=== PATIENT | female | born 1970 | race Caucasian/White ===

== ENCOUNTER → 2020-04-01 10:41 | Outpatient (BNVA) | payer MEDICAID, SELFPAY | PROVIDERS: Family Provider Family Medicine; Visit Provider Family Medicine | DX: Z13.6 Encounter for screening for cardiovascular disorders (principal) | CPT/HCPCS: 80053; 80061; 85025 ==

== ENCOUNTER 2023-08-16 21:16 | Inpatient (IN) | payer MEDICAID, SELFPAY ==
[2023-08-16 21:18] VITALS: BP 170/94; PULSE 72; RESP 18; TEMP 36.9; O2SAT 97
--- NOTE | 2023-08-16 21:39 | PC.NURSE ---
Patient has been dressed out of regular clothes and placed in paper scrubs. All belongings removed, patient placed in cleared room. PSA present with patient at this time.
--- NOTE | 2023-08-16 21:40 | PC.NURSE ---
Notes that were handwritten by the patient placed on her chart
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
--- NOTE | 2023-08-16 21:45 | PC.NURSE ---
Addendum entered by Lou Andrea RN 08/16/23 22:40: this nurse spoke with Nghia about [facility] for medications. since there was no clear cute time that medications were taken, it would be out clinical judgment on when to dc her to the unit. possibly repeat ekg in 4 hours if we noticed changes in her vitals. Original Note: Contacted [place] [facility] at this time and spoke with ROB Agrawal. Regarding the 300mg Gabapentin (approximately 40 pills ingested), monitor for the following symptoms: -drowsiness -slurred words -ataxia -confusion ROB Agrawal instructed nurse to monitor symptoms and provide symptomatic supportive care as needed. Regarding the 50mg Zoloft (approximately 6 pills ingested), monitor for the following symptoms: -toxic dose is anything over 500mg -prolong QT -tachycardia -serotonin toxicity ROB Agrawal stated that she would fax more information over to [facility].
[2023-08-16 21:58] LABS: Cocaine Screen Urine Negative (Negative); Opiate Screen Urine Negative (Negative); PCP Screen Urine Negative (Negative); THC Screen Urine Positive (Negative)
--- NOTE | 2023-08-16 21:59 | ECG_ITS ---
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 Measurements Intervals [place] Rate: 63 P: -3 NJ: 142 QRS: 76 QRSD: 84 T: -1 QT: 439 QTc: 452 Interpretive Statements SINUS RHYTHM POSSIBLE LEFT ATRIAL ENLARGEMENT [-0.1mV P-WAVE IN V1/V2] ABNORMAL QRS-T ANGLE [QRS-T AXIS DIFFERENCE > 60] No previous ECG available for comparison Electronically Signed On 08-17-2023 8:14:29 TOOL ROOM ATTENDANT by Joaquín Ventura M.D. [email or web address]
[2023-08-16 22:00] LABS: Basophils # 0.1 10^3/uL (0.0-0.1); Basophils % 0.5 %; Eosinophils # 0.1 10^3/uL (0.0-0.8); Eosinophils % 0.8 %; Hematocrit 39.3 % (36-47); Lymphocytes # 3.1 10^3/uL (0.8-4.8); Lymphocytes % 34.3 %; Mean Corpuscular HGB Conc 33.1 g/dL (30-55); Mean Corpuscular Hemoglobin 29.7 pg (27-33); Mean Corpuscular Volume 89.7 fl (85-98); Mean Platelet Volume 8.9 fL (7.4-10.4); Monocytes # 0.6 10^3/uL (0.2-0.9); Monocytes % 6.9 %; Neutrophils % 57.1 %; Nucleated Red Blood Cells % 0 %; Platelet Count 350 10^3/cmm (157-399); Red Blood Count 4.38 10^6/uL (3.85-5.65); Red Cell Distribution Width 12.9 % (12.1-15.1); White Blood Count 9.12 10^3/uL (3.29-11.43)
[2023-08-16 22:11] VITALS: BP 158/85; PULSE 81; O2SAT 98
[2023-08-16 22:11] LABS: Amphetamines Screen Urine Negative (Negative); Barbiturates Screen Urine Negative (Negative); Benzodiazepines Screen Urine Negative (Negative)
--- NOTE | 2023-08-16 22:15 | PC.NURSE ---
96 [facility] Pt served with copy of 96 HH by this RN and security. Pt is remorseful and stating that they didn't mean what they wrote. Pt requesting medication for anxiety.
[2023-08-16 22:17] LABS: Alanine Aminotransferase 10 U/L (0-33); Albumin Level 4.2 g/dL (3.5-5.2); Alkaline Phosphatase 132 U/L (35-105); Anion Gap 13.5 (5-19); Aspartate Amino Transferase 14 U/L (0-32); Blood Urea Nitrogen 10 mg/dL (6-20); Calcium 9.1 mg/dL (8.5-10.5); Carbon Dioxide 30 mmol/L (22-29); Chloride 100 mmol/L (98-107); Globulin 3.4 g/dL (1.3-4.6); Glomerular Filtration Rate 104.6 mL/min (90-130); Glucose 118 mg/dL (65-115); Osmolality Calculated 290 mOsm/kg (285-295); Potassium 3.5 mmol/L (3.5-5.1); Salicylate 0.8 mg/dL (3-10); Sodium 140 mmol/L (136-145); Total Bilirubin 0.6 mg/dL (0.15-1.2); Total Protein 7.6 g/dL (6.6-8.7)
[2023-08-16 22:19] LABS: Acetaminophen < 5.0 ug/mL (10-30)
--- NOTE | 2023-08-16 22:24 | PC.NURSE ---
pt statement pt states at this time she is ready to go to the unit so she can start her time. states she is not a threat to herself. states 'if i were a threat to myself I would burn myself'
[2023-08-16] MEDS: LORazepam 2 mg/mL INJ 10 mL MDV 1 MG IM (22:28)
[2023-08-16 22:42] LABS: Alcohol Level < 10 mg/dL (0-10)
[2023-08-16 22:57] VITALS: BP 185/72; PULSE 65; RESP 20; TEMP 36.4; O2SAT 99
[2023-08-17 06:00] VITALS: BP 128/70; PULSE 82; RESP 18; TEMP 36.7; O2SAT 93
[2023-08-17] MEDS: nicotine 21 mg Patch 1 PATCH TRANSDERMA (08:57)
[2023-08-17] MEDS: flu vacc pf 2023-24 (6 mos+) 60 MCG IM (09:09)
[2023-08-17] MEDS: pneumococcal (23 valent) SDV 0.5 mL IM (09:16)
[2023-08-17 14:00] VITALS: BP 129/69; PULSE 70; RESP 16; TEMP 36.8; O2SAT 96
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
[2023-08-17 21:02] VITALS: BP 146/69; PULSE 75; RESP 17; TEMP 36.9; O2SAT 98
[2023-08-18 06:00] VITALS: BP 154/75; PULSE 79; RESP 15; TEMP 36.9; O2SAT 96
[2023-08-18] MEDS: nicotine 21 mg Patch 1 PATCH TRANSDERMA (08:37)
[2023-08-18] MEDS: duloxetine 30 mg Capsule PO (08:42)
[2023-08-18 13:50] VITALS: BP 125/81; PULSE 64; RESP 16; TEMP 36.9; O2SAT 98
--- NOTE | 2023-08-18 16:17 | P.NPUPN_ITS ---
Subjective NPU 2 Subjective: Patient presented today reporting that she is doing okay. She reports that she has had Cymbalta previously in her life and that she feels like it is doing fine. She denied any side effects. She reports that she is likely going to stay in this area when she leaves as her children and grandchildren are around. We discussed the 96-hour hold and how the process works and that we had no current plan to keep her beyond the 96 hours or ask for an extension. She reports feeling better overall. Mental Status Exam 2 MSE Comments: This is an overweight white female in hospital scrubs with limited grooming but adequate eye contact. Appeared absent dentition with some atrophy from the time frame of missing teeth. No abnormal movements except for mild psychomotor retardation. Cooperative with exam in mild distress. Speech is normal rate and volume. Her mood was described as a little better. Her affect was subdued and mood congruent. She denied suicidal or homicidal ideation. There were no delusions reported or noted, she denied any auditory or visual hallucinations. Attention and concentration appeared intact and memory appeared reliable but none were formally tested. She is alert and oriented x 3. Insight and judgment appear limited but improving and her impulse control appeared limited. Vitals/I&O/Wt Last Vital Signs Temp 98.4 F 08/18/23 13:50 Pulse 64 08/18/23 13:50 Resp 16 08/18/23 13:50 BP 125/81 08/18/23 13:50 Pulse Ox 98 08/18/23 13:50 O2 Del Method Room Air 08/18/23 13:50 Weight last 48 hrs Weight 70.307 kg Data NPU 08/16/23 21:54 08/16/23 21:54 A&P Assessment and plan (1) Schizoaffective disorder, depressive type: (2) Suicidal ideation: (3) PTSD (post-traumatic stress disorder): Plan 53-year-old white female history of schizoaffective disorder predominantly depressed type admitted with depression and suicidal ideation after an overdose. Patient would likely benefit from continued inpatient hospital stay with the restarting of medication and psychotherapy. 1. ?Encourage individual, group and milieu therapy. 2. Recommend sober living treatment at the highest level of care to which the patient is willing to commit. 3. Continue q-15 minute checks for safety 4. Continue cymbalta 30mg in am to target depression. 5. Will attempt to gather collateral information. Involuntary Hold Information 2 96 Hour Hold: 96 Hour Involuntary Admission: Yes 96 Hour Hold Ending Date: 08/22/23 96 Hour Hold Ending Time: 21:16 Attestations NPU 2 Medical Necessity Statement*: Inpatient hospitalization is medically necessary and deemed to be the clinically appropriate intervention at this time.? Medications will be initiated and adjusted as clinically indicated.? The patient?s likely length of stay is 3-5 days.? Coding Level of Care Code Acute Code for [facility] Fwd Diagnoses Schizoaffective disorder, depressive type F25.1 Suicidal ideation R45.851 PTSD (post-traumatic stress disorder) F43.10
[2023-08-18] MEDS: acetaminophen 325 mg Tablet 650 MG PO (18:03)
[2023-08-18 21:06] VITALS: BP 125/79; PULSE 74; RESP 16; TEMP 36.8; O2SAT 97
[2023-08-19] MEDS: nicotine 4 mg lozenge MUCOUS MEM (00:49)
[2023-08-19 06:00] VITALS: BP 146/84; PULSE 74; RESP 16; TEMP 36.8; O2SAT 96
[2023-08-19] MEDS: duloxetine 30 mg Capsule PO (08:16)
[2023-08-19] MEDS: nicotine 21 mg Patch 1 PATCH TRANSDERMA (08:16)
[2023-08-19] MEDS: acetaminophen 325 mg Tablet 650 MG PO ×2 (11:17→18:02)
[2023-08-19] MEDS: ibuprofen 600 mg Tablet PO (13:16)
[2023-08-19 14:00] VITALS: BP 148/86; PULSE 68; RESP 14; TEMP 36.6; O2SAT 99
--- NOTE | 2023-08-19 15:55 | W.PM.NPUPNS ---
Subjective NPU Subjective: Patient presented today reporting that she is really starting to feel better. She tried to downplay her overdose and we talked about having to be honest about what had happened. She identified that she understood the concerns and reported that that would not happen again. We discussed her reports of when someone might be able to come pick her up. We discussed the fact that with her current trajectory discharge by Tuesday will be appropriate and we talked about the possibility of discharge this weekend. She denied any side effects to the medication. Mental Status Exam MSE Comments: This is an overweight white female in hospital scrubs with limited grooming but adequate eye contact. Appeared absent dentition with some atrophy from the time frame of missing teeth. No abnormal movements except for mild psychomotor retardation. Cooperative with exam in mild distress. Speech is normal rate and volume. Her mood was described as a little better. Her affect was congruent. She denied suicidal or homicidal ideation. There were no delusions reported or noted, she denied any auditory or visual hallucinations. Attention and concentration appeared intact and memory appeared reliable but none were formally tested. She is alert and oriented x 3. Insight and judgment appear limited but improving and her impulse control appeared limited. Vitals/I&O/Wt Last Vital Signs Temp 98.2 F 08/19/23 06:00 Pulse 74 08/19/23 06:00 Resp 16 08/19/23 06:00 BP 146/84 08/19/23 06:00 Pulse Ox 96 08/19/23 06:00 O2 Del Method Room Air 08/19/23 06:00 Data NPU 08/16/23 21:54 08/16/23 21:54 A&P Assessment and plan (1) Schizoaffective disorder, depressive type: (2) Suicidal ideation: (3) PTSD (post-traumatic stress disorder): Plan 53-year-old white female history of schizoaffective disorder predominantly depressed type admitted with depression and suicidal ideation after an overdose. Patient would likely benefit from continued inpatient hospital stay with the restarting of medication and psychotherapy. 1. ?Encourage individual, group and milieu therapy. 2. Recommend sober living treatment at the highest level of care to which the patient is willing to commit. 3. Continue q-15 minute checks for safety 4. Continue cymbalta 30mg in am to target depression. 5. Will attempt to gather collateral information. Involuntary Hold Information 96 Hour Hold: 96 Hour Involuntary Admission: Yes 96 Hour Hold Ending Date: 08/22/23 96 Hour Hold Ending Time: 21:16 Attestations NPU Medical Necessity Statement*: Inpatient hospitalization is medically necessary and deemed to be the clinically appropriate intervention at this time.? Medications will be initiated and adjusted as clinically indicated.? The patient?s likely length of stay is 1-3 days.? Coding Level of Care Code Acute Code for [facility] Fwd Diagnoses Schizoaffective disorder, depressive type F25.1 Suicidal ideation R45.851 PTSD (post-traumatic stress disorder) F43.10
[2023-08-19] MEDS: nicotine 2 mg Gum BUCCAL (18:03)
[2023-08-19] MEDS: simethicone 80 mg Chew PO (18:53)
[2023-08-19 20:47] VITALS: BP 150/76; PULSE 77; RESP 17; TEMP 36.9; O2SAT 98
[2023-08-20 06:00] VITALS: BP 142/89; PULSE 78; RESP 16; TEMP 36.7; O2SAT 98
[2023-08-20] MEDS: nicotine 21 mg Patch 1 PATCH TRANSDERMA (06:40)
[2023-08-20] MEDS: duloxetine 30 mg Capsule PO (08:05)
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
[2023-08-20 10:13] VITALS: BP 142/89; PULSE 78; RESP 16; TEMP 36.7; O2SAT 98
[2023-08-20] MEDS: hyDROXYzine 25 mg Capsule 50 MG PO (10:52)
== END 2023-08-20 11:06 | disposition home or self-care (01) | DRG 885 ==
LOC: ER 21:56 → NP 22:33
PROVIDERS: Emergency Medicine; Admitting Provider Psychiatry & Neurology Psychiatry; Emergency Provider Nurse Practitioner; Visit Provider Psychiatry & Neurology Psychiatry
DX: F25.1 Schizoaffective disorder, depressive type (principal); R45.851 Suicidal ideations; K86.1 Other chronic pancreatitis; F43.10 Post-traumatic stress disorder, unspecified; Z56.0 Unemployment, unspecified; K21.9 Gastro-esophageal reflux disease without esophagitis; F17.210 Nicotine dependence, cigarettes, uncomplicated; G47.00 Insomnia, unspecified; G89.29 Other chronic pain; M54.50 Low back pain, unspecified; J45.909 Unspecified asthma, uncomplicated; G25.81 Restless legs syndrome; R42 Dizziness and giddiness; F41.9 Anxiety disorder, unspecified; F32.A Depression, unspecified; K59.09 Other constipation; T43.222A Poisoning by selective serotonin reuptake inhibitors, intentional self-harm, initial encounter; Y92.89 Other specified places as the place of occurrence of the external cause
CPT/HCPCS: 36415; 80053; 80306; 80307; 85025; 90471; 90686; 90732; 93005; 96372; 97165; 99285; J2060

== ENCOUNTER 2023-11-15 14:52 | Emergency (ER) | payer MEDICAID, SELFPAY ==
[2023-11-15 14:53] VITALS: BP 106/77; PULSE 92; RESP 18; TEMP 36.5; O2SAT 98
[2023-11-15 15:39] VITALS: BP 79/56; PULSE 92; RESP 19; O2SAT 96
--- NOTE | 2023-11-15 15:47 | PC.NURSE ---
PT BP 81/56. PT REPORTS THAT HER BP RUNS LOW BUT NEVER THAT LOW. PT DENIES LIGHTHEADED OR DIZZY. PT STATES SHE TOOK IBU PRIOR TO COMING INTO ER. PA NOTIFIED AND AWARE.
[2023-11-15 16:08] VITALS: BP 101/66; O2SAT 97
--- NOTE | 2023-11-15 16:15 | CTR_ITS ---
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 Mid line TECHNIQUE: Imaging protocol: Computed tomography of the lumbar spine without contrast. Radiation optimization: All CT scans at this facility use at least one of these dose optimization techniques: automated exposure control; mA and/or kV adjustment per patient size (includes targeted exams where dose is matched to clinical indication); or iterative reconstruction. COMPARISON: No relevant prior studies available. RADIATION DOSE METRICS: Total DLP (mGy-cm): 606 FINDINGS: Bones/joints: The bony structures demonstrate diffuse osteopenia. No fracture or subluxation noted. Mild multilevel vertebral body spurring noted. A moderate disc bulge is noted at the L5-S1 level. Soft tissues: Unremarkable. CT/CT lumbar spine wo con* [id number] IMPRESSION: 1. No acute findings. 2. Osteoporosis 3. Disc bulge at L5-S1
--- NOTE | 2023-11-15 16:15 | W.ED.BACK ---
HPI - Back Pain/Injury General: Chief Complaint: Back Pain/Injury Stated Complaint: heard something pop in back Time Seen by Provider: 11/15/23 15:35 Source: patient Mode of arrival: ambulatory Limitations: no limitations History of Present Illness: Patient presents emergency department today for evaluation treatment of midline low back pain. Patient reports that this morning around 8:00 she bent over to try and lift up a bag of soil and felt a pop in her low back. She has had pain in that area since. She denies any radiation of her pain. She states it feels like an intense tingling. She has had urinary voids throughout the day without difficulty and is ambulatory and david bearing, but with pain. No saddle parenthesia. She has only taken ibuprofen earlier today for her pain. Review of Systems General: Reports: 10 or more systems reviewed and unremarkable except in HPI and below PFSH ED PFSH: Medical History Psychiatric care Chronic pancreatitis Chronic constipation GERD (gastroesophageal reflux disease) Ulcer Vertigo RLS (restless legs syndrome) Asthma Allergic rhinitis Chronic low back pain Insomnia Surgical History H/O: hysterectomy History of cholecystectomy History of appendectomy Family History Mother Hypothyroidism Other Hypertension Social History Smoking and tobacco/nicotine status: current every day tobacco/nicotine user cigarettes Packs smoked per day: 1 Alcohol intake: former Former alcohol use details: NOT HEAVY Substance/Drug Use: current Substance/Drug use frequency: daily Caregiver/support person: No Lives independently: Yes service: No Current occupational status: unemployed Current occupational exposures/hazards: No Female Reproductive History: Spontaneous abortions: No Physical Exam Const: COMMON NORMALS: patient oriented x3 and alert HENMT: COMMON NORMALS: normocephalic, atraumatic and hearing grossly normal bilaterally HEAD & SCALP: normocephalic and atraumatic Eye: COMMON NORMALS: Equal, round and reactive pupils present, EOMs intact bilaterally and conjunctivae normal CONJUNCTIVA: Yes conjunctivae normal PUPIL: Yes Equal, round and reactive pupils present Neck/C-Spine: COMMON NORMALS: full ROM and no JVD Lymph: LYMPHATIC: no lymphadenopathy noted Resp: COMMON NORMALS: normal respiratory effort, No retractions and No use of accessory muscles Cardio: COMMON NORMALS: no JVD and regular rate RATE: regular rate Back/Pelvis: OTHER: Patient indicates pain to the lumbar region. Tender to midline palpation with minimal tenderness to the surrounding musculature. Mostly L3 to the sacrum. Extremity: COMMON NORMALS: normal to inspection and full ROM Neuro: COMMON NORMALS: patient oriented x3 SENSORIUM/ORIENTATION: Yes alert Psych: COMMON NORMALS: mental status grossly normal, Normal thought process present, cooperative and normal affect THOUGHT PROCESS: Normal thought process present Skin: COMMON NORMALS: no rashes or lesions noted and turgor normal GENERAL SKIN EXAM: no rashes or lesions noted and turgor normal Course Vital Signs: Vital signs: Vital Signs Temperature 97.7 F 11/15/23 14:53 Pulse Rate 92 11/15/23 15:39 Respiratory Rate 19 H 11/15/23 15:39 Blood Pressure 101/66 11/15/23 16:08 Pulse Oximetry 97 11/15/23 16:08 Oxygen Delivery Me thod Room Air 11/15/23 16:08 MDM - Back Pain/Injury Medical Decision Making Patient presents with acute midline lumbar pain without signs of cauda equina. Her pressures were soft on arrival so fluids given and non narcotic pain meds given. Will monitor BP. Given the midline tenderness but no neuro deficit, will get a CT vs consideration for MRI. Waiting for treatment administration and imaging. Transfer of care to [facility] at 1700 All radiology interpretation(s) finalized by discharge Discharge Plan Discharge Condition: Stable Prescriptions: No Action triamcinolone acetonide 0.1 % cream 1 applic topical BID Qty: 80 1RF hydroxyzine HCl 25 mg tablet 25 mg PO BID PRN (Reason: itching, allergies) Qty: 60 2RF Myrbetriq 25 mg tablet extended release 24 hr 25 mg PO DAILY Qty: 30 5RF dicyclomine 10 mg capsule 10 mg PO BID Qty: 60 2RF albuterol sulfate 90 mcg/actuation HFA aerosol inhaler 2 inh inhalation QID PRN (Reason: shortness of breath or wheezing) Qty: 8.5 5RF pregabalin 50 mg capsule 50 mg PO BID Qty: 60 5RF Linzess 72 mcg capsule 72 mcg PO DAILY Qty: 30 5RF clonazepam 0.5 mg tablet 0.5 mg PO DAILY Qty: 30 5RF duloxetine 30 mg capsule,delayed release(DR/EC) 30 mg PO DAILY 30 Days Qty: 30 5RF acyclovir 400 mg tablet 400 mg PO TID Qty: 30 5RF Rx Instructions: Take one tab four times a day at outbreak and continue for 5 days, then stop. mupirocin 2 % ointment 1 applic topical BID 7 Days Qty: 22 0RF oxybutynin chloride 5 mg tablet 5 mg PO BID 30 Days Qty: 60 2RF Referrals: Nikhil Talbot, [Primary Care Provider] - Sign Out Sign Out Data: Patient Sign Out occurred on 11/15/23 at 17:31. Patient's care was discussed, and care was transferred from MICAH Singh to MICAH Horn. Coding Level of Care Code ED Security Checker for Yasmin Desai
[2023-11-15] MEDS: sodium chloride 0.9% 1,000 ML 999 ML IV (16:23)
[2023-11-15] MEDS: ketorolac 30 mg/mL INJ IVP (16:25)
[2023-11-15] MEDS: dexamethasone 10 mg/mL INJ IM (16:27)
--- NOTE | 2023-11-15 17:42 | W.ED.BACK ---
HPI - Back Pain/Injury General: Chief Complaint: Back Pain/Injury Stated Complaint: heard something pop in back Time Seen by Provider: 11/15/23 15:35 Source: patient Limitations: no limitations PFSH ED PFSH: Medical History Psychiatric care Chronic pancreatitis Chronic constipation GERD (gastroesophageal reflux disease) Ulcer Vertigo RLS (restless legs syndrome) Asthma Allergic rhinitis Chronic low back pain Insomnia Surgical History H/O: hysterectomy History of cholecystectomy History of appendectomy Family History Mother Hypothyroidism Other Hypertension Social History Smoking and tobacco/nicotine status: current every day tobacco/nicotine user cigarettes Packs smoked per day: 1 Alcohol intake: former Former alcohol use details: NOT HEAVY Substance/Drug Use: current Substance/Drug use frequency: daily Caregiver/support person: No Lives independently: Yes service: No Current occupational status: unemployed Current occupational exposures/hazards: No Female Reproductive History: Spontaneous abortions: No Course Vital Signs: Vital signs: Vital Signs Temperature 97.7 F 11/15/23 14:53 Pulse Rate 92 11/15/23 15:39 Respiratory Rate 19 H 11/15/23 15:39 Blood Pressure 101/66 11/15/23 16:08 Pulse Oximetry 97 11/15/23 16:08 Oxygen Delivery Wy thod Room Air 11/15/23 16:08 MDM - Back Pain/Injury Medical Decision Making Care of patient transferred to [place] by MICAH Doherty. Patient had low back injury today when bending over and lifting, felt a pop. No prior surgeries. Lumbar spine CT did not demonstrate any acute findings, patient likely dealing with a low back strain. She does note some improvement after receiving IM Toradol and Decadron, and will send home with medications to treat. Informed her to follow-up with primary care later this week for reevaluation, specifically if she is continuing to have pain she will need to get in with Ortho and get an MRI. Patient understands and reasons to return are thoroughly discussed. Labs Radiology Impressions Lumbar Spine CT 11/15/23 16:15 IMPRESSION: 1. No acute findings. 2. Osteoporosis 3. Disc bulge at L5-S1 All radiology interpretation(s) finalized by discharge Discharge Plan Discharge Patient Disposition: Home Clinical Impression: Strain of lumbar region Qualifiers: Encounter type: initial encounter Qualified Code(s): S39.012A - Strain of muscle, fascia and tendon of lower back, initial encounter Condition: Stable Prescriptions: New cyclobenzaprine 10 mg tablet 10 mg PO TID Qty: 15 0RF prednisone 20 mg tablet 60 mg PO ONCE 5 Days Qty: 15 0RF ketorolac 10 mg tablet 10 mg PO Q8H PRN (Reason: pain) Qty: 15 0RF No Action triamcinolone acetonide 0.1 % cream 1 applic topical BID Qty: 80 1RF hydroxyzine HCl 25 mg tablet 25 mg PO BID PRN (Reason: itching, allergies) Qty: 60 2RF Myrbetriq 25 mg tablet extended release 24 hr 25 mg PO DAILY Qty: 30 5RF dicyclomine 10 mg capsule 10 mg PO BID Qty: 60 2RF albuterol sulfate 90 mcg/actuation HFA aerosol inhaler 2 inh inhalation QID PRN (Reason: shortness of breath or wheezing) Qty: 8.5 5RF pregabalin 50 mg capsule 50 mg PO BID Qty: 60 5RF Linzess 72 mcg capsule 72 mcg PO DAILY Qty: 30 5RF clonazepam 0.5 mg tablet 0.5 mg PO DAILY Qty: 30 5RF duloxetine 30 mg capsule,delayed release(DR/EC) 30 mg PO DAILY 30 Days Qty: 30 5RF acyclovir 400 mg tablet 400 mg PO TID Qty: 30 5RF Rx Instructions: Take one tab four times a day at outbreak and continue for 5 days, then stop. mupirocin 2 % ointment 1 applic topical BID 7 Days Qty: 22 0RF oxybutynin chloride 5 mg tablet 5 mg PO BID 30 Days Qty: 60 2RF Discharge Orders: Discharge ED (Routine); Ordered 11/15/23 Ordered By: Boyd Bernstein Referrals: Nikhil Talbot DO [Primary Care Provider] - Discharge Diet: Usual diet Discharge Activity: Increase activity as tolerated Patient Instructions: Low Back Strain (ED), Core Strengthening Exercises (ED), Pain Management Activity Restrictions/Additional Instructions: Take medications as prescribed. Gentle range of motion exercises as tolerated. Follow-up with primary care later this week for reevaluation as discussed. Return with any new or concerning symptoms you may have. Ice/heat for added relief. Sign Out Sign Out Data: Patient Sign Out occurred on 11/15/23 at 17:31. Patient's care was discussed, and care was transferred from MICAH Singh to MICAH Horn. Coding Level of Care Code ED [employer] for Yasmin Desai
== END 2023-11-15 17:51 | disposition home or self-care (01) ==
PROVIDERS: Emergency Provider Physician Assistant; PCP Family Medicine
DX: M54.50 Low back pain, unspecified (principal); F17.210 Nicotine dependence, cigarettes, uncomplicated
CPT/HCPCS: 72131; 96361; 96374; 99285; J1100; J1885; J7030

== ENCOUNTER 2024-03-13 12:04 | Emergency (ER) | payer MEDICAID, SELFPAY ==
[2024-03-13 12:10] VITALS: BP 162/102; PULSE 111; RESP 18; TEMP 36.9; O2SAT 99; BMI 27.4
--- NOTE | 2024-03-13 12:19 | W.ED.ABDPA2 ---
HPI - Abdominal Pain General: Chief Complaint: Abdominal Pain Stated Complaint: abd pain Time Seen by Provider: 03/13/24 12:08 Source: patient Mode of arrival: ambulatory Limitations: no limitations History of Present Illness: Patient is a 53-year-old female presents to ED today with a complaint of severe upper abdominal pain that started just a few hours ago. She states she has a history of pancreatitis and states her pain today feels similar to previous episodes. She states she does not drink alcohol. States she has been told pancreatitis is idiopathic. She is having nausea but has not had any episodes of emesis. No changes to her bowel movements. No fevers. No chest pain, shortness of breath, difficulty breathing. MD elicited complaint: abdominal pain Pertinent past history: other (pancreatitis ) Onset (ago): hour(s) Pain Consistency: constant Location: Epigastric Severity: severe Quality: sharp Radiation: none Migration to: no migration Exacerbating factors: nothing Relieving factors: nothing Associated Symptoms: Reports nausea; Denies change in bowel habits, chills, diarrhea, dysuria, fever(s) and vomiting Related Data Home Medications Medication Instructions Recorded Confirmed No Known Home Medications 03/13/24 03/13/24 Allergies Allergy/AdvReac Type Severity Reaction Status Date / Time bupropion [From Wellbutrin] Allergy ADR-Cramping Verified 11/15/23 14:59 of the Muscles buspirone [From BuSpar] Allergy ADR-Agitate Verified 11/15/23 14:59 d Review of Systems Const: Denies: fever(s), chills, body aches, fatigue or malaise Card: Denies: chest pain Resp: Denies: dyspnea GI: Reports: abdominal pain and nausea; Denies: vomiting, diarrhea or change in bowel habits : Denies: flank pain, difficulty voiding, dysuria, urinary frequency, urinary urgency or urinary hesitancy Musc: Denies: neck pain, back pain, extremity pain, extremity swelling, joint pain or joint swelling Skin/Breast: Denies: rash Neuro: Denies: headache(s), numbness in extremities, weakness in extremities, sensory changes or dizziness [facility] ED PFSH: Medical History Psychiatric care Chronic pancreatitis Chronic constipation GERD (gastroesophageal reflux disease) Ulcer Vertigo RLS (restless legs syndrome) Asthma Allergic rhinitis Chronic low back pain Insomnia Surgical History H/O: hysterectomy History of cholecystectomy History of appendectomy Family History Mother Hypothyroidism Other Hypertension Social History Smoking and tobacco/nicotine status: current every day tobacco/nicotine user cigarettes Packs smoked per day: 1 Alcohol intake: former Former alcohol use details: NOT HEAVY Substance/Drug Use: current Substance/Drug use frequency: daily Caregiver/support person: No Lives independently: Yes service: No Current occupational status: unemployed Current occupational exposures/hazards: No Female Reproductive History: Spontaneous abortions: No Physical Exam Const: COMMON NORMALS: average body habitus, patient oriented x3, no limitations, alert and well nourished GENERAL APPEARANCE: cooperative, in distress (appears uncomfortable secondary to pain) and appears older than stated age ORIENTATION/CONSCIOUSNESS: Yes awake, Yes oriented to person, Yes oriented to place and Yes oriented to time Eye: COMMON NORMALS: no scleral icterus Resp: COMMON NORMALS: normal respiratory effort and clear to auscultation bilaterally AUSCULTATION: clear to auscultation bilaterally Cardio: COMMON NORMALS: regular rate RATE: regular rate and tachycardic GI: COMMON NORMALS: Normal to inspection, nondistended, normoactive bowel sounds present, Soft to palpation, No hepatosplenomegaly present and no masses INSPECTION: Yes normal to inspection AUSCULTATION: Yes normoactive bowel sounds PALPATION: Yes Soft to palpation, Yes Tenderness to palpation present (GI) (throughout upper abdomen), Yes Guarding due to palpation present (GI) and Yes No hepatosplenomegaly present : COMMON NORMALS: Yes no CVA tenderness BLADDER/KIDNEY EXAM: Yes no CVA tenderness Back/Pelvis: COMMON NORMALS: no CVA tenderness Extremity: GENERAL: Yes normal exam except as noted Neuro: COMMON NORMALS: patient oriented x3, moves all extremities, no focal motor deficits and no sensory deficits noted SENSORIUM/ORIENTATION: Yes alert, Yes oriented to person, Yes oriented to place and Yes oriented to time Skin: COMMON NORMALS: no rashes or lesions noted GENERAL SKIN EXAM: no rashes or lesions noted Course Vital Signs: Vital signs: Vital Signs Temperature 98.4 F 03/13/24 12:10 Pulse Rate 101 H 03/13/24 12:47 Respiratory Rate 20 H 03/13/24 13:29 Blood Pressure 162/102 03/13/24 12:47 Pulse Oximetry 98 03/13/24 12:47 Oxygen Delivery Me thod Room Air 03/13/24 12:47 MDM - Abdominal Pain Medical Decision Making Patient feeling better after IV medications given here. Her blood work overall is unremarkable. Her LFTs are normal including her t. bili and lipase. CT scan showing intrahepatic and extrahepatic bile duct dilatation most likely physiologic related to her previous cholecystectomy. No other concerning findings. Upper abdominal pain unlikely cardiac given that pain was directly reproducible with palpation. Recommend follow-up with primary care later this week for re-evaluation. Return to ED precautions given. Medical Records I reviewed the patient's medical records. Lab Data I reviewed the patient's lab results. 03/13/24 12:21 03/13/24 12:21 Labs/Radiology: Radiology Impressions Abdomen/Pelvis CT 03/13/24 12:38 IMPRESSION: 1. Prior cholecystectomy. 2. Intrahepatic and extrahepatic bile duct dilatation. Common bile duct measures 1.0 cm. No mass or stone identified in the distal common bile duct. The dilatation may be physiologic and related to the cholecystectomy. 3. Pancreatic duct is top normal size. Mildly prominent small bowel loops in the LEFT upper abdomen. No obstruction. 4. No free air or free fluid. Laboratory Results WBC 12.06 10^3/uL (3.29-11.43) H 03/13/24 12:21 RBC 4.63 10^6/uL (3.85-5.65) 03/13/24 12:21 Hgb 14.20 g/dL (11.27-16.99) 03/13/24 12:21 Hct 42.4 % (36-47) 03/13/24 12:21 MCV 91.6 fl (85-98) 03/13/24 12:21 MCH 30.7 pg (27-33) 03/13/24 12:21 MCHC 33.5 g/dL (30-55) 03/13/24 12:21 RDW 12.5 % (12.1-15.1) 03/13/24 12:21 Plt Count 315 10^3/cmm (157-399) 03/13/24 12:21 MPV 9.6 fL (7.4-10.4) 03/13/24 12:21 Neut % (Auto) 58.9 % 03/13/24 12:21 Lymph % (Auto) 30.8 % 03/13/24 12:21 [place] % (Auto) 7.3 % 03/13/24 12:21 Eos % (Auto) 2.0 % 03/13/24 12:21 Baso % (Auto) 0.7 % 03/13/24 12:21 Neut # (Auto) 7.10 10^3/uL (1.8-7.7) 03/13/24 12:21 Lymph # (Auto) 3.7 10^3/uL (0.8-4.8) 03/13/24 12:21 [place] # (Auto) 0.9 10^3/uL (0.2-0.9) 03/13/24 12:21 Eos # (Auto) 0.2 10^3/uL (0.0-0.8) 03/13/24 12:21 Baso # (Auto) 0.1 10^3/uL (0.0-0.1) 03/13/24 12:21 Nucleated RBC % (auto) 0 % 03/13/24 12:21 Nucleated RBCs # 0.0 /100WBC 03/13/24 12:21 Sodium 141 mmol/L (136-145) 03/13/24 12:21 Potassium 4.1 mmol/L (3.5-5.1) 03/13/24 12:21 Chloride 104 mmol/L (98-107) 03/13/24 12:21 Carbon Dioxide 26 mmol/L (22-29) 03/13/24 12:21 Anion Gap 15.1 (5-19) 03/13/24 12:21 BUN 8 mg/dL (6-20) 03/13/24 12:21 Creatinine 0.6 mg/dL (0.5-0.9) 03/13/24 12:21 GFR Calculation 104.6 mL/min (90-130) 03/13/24 12:21 Glucose 106 mg/dL (65-115) 03/13/24 12:21 Calculated Osmolality 291 mOsm/kg (285-295) 03/13/24 12:21 Calcium 9.1 mg/dL (8.5-10.5) 03/13/24 12:21 Total Bilirubin 0.5 mg/dL (0.15-1.2) 03/13/24 12:21 AST 27 U/L (0-32) 03/13/24 12:21 ALT 12 U/L (0-33) 03/13/24 12:21 Alkaline Phosphatase 139 U/L (35-105) H 03/13/24 12:21 Total Protein 7.2 g/dL (6.6-8.7) 03/13/24 12:21 Albumin 4.2 g/dL (3.5-5.2) 03/13/24 12:21 Globulin 3.0 g/dL (1.3-4.6) 03/13/24 12:21 Lipase 18 U/L (13-60) 03/13/24 12:21 Urine Color Yellow (Yellow) 03/13/24 13:25 Urine Appearance Clear (CLEAR) 03/13/24 13:25 Urine pH 6 (5-7) 03/13/24 13:25 Ur Specific [place] 1.015 (1.005-1.030) 03/13/24 13:25 Urine Protein Neg (Negative) 03/13/24 13:25 Urine Glucose (UA) Norm (Normal) 03/13/24 13:25 Urine Ketones Negative (Negative) 03/13/24 13:25 Urine Blood Neg (Negative) 03/13/24 13:25 Urine Nitrate Negative (Negative) 03/13/24 13:25 Urine Bilirubin Neg (Negative) 03/13/24 13:25 Urine Urobilinogen Norm mg/dL (Negative) 03/13/24 13:25 Ur Leukocyte Esterase Negative (Negative) 03/13/24 13:25 Amorphous Sediment Not Reportable 03/13/24 13:25 All radiology interpretation(s) finalized by discharge Discharge Plan Discharge Patient Disposition: Home Clinical Impression: Abdominal pain of unknown cause Condition: Stable Prescriptions: No Action No Known Home Medications Rx Instructions: Patient No longer taking any medications stated by patient .03/13/24 Discharge Orders: Discharge ED (Routine); Ordered 03/13/24 Ordered By: Nancy Whitt Referrals: Nikhil Talbot DO [Primary Care Provider] - Patient Instructions: Abdominal Pain (ED) Activity Restrictions/Additional Instructions: As we discussed your blood work or CT scan did not show any cause for your abdominal discomfort at this time. I would like you to closely observe your symptoms at home. You need to return to the emergency department for worsening pain, repetitive episodes of vomiting, any blood in your vomit, dark or tarry stools, fevers, chest pain, shortness of breath, difficulty breathing, generally feeling worse or unwell, or any other concerns you may have. Otherwise I would like you to follow-up with primary care later this week for reevaluation. Coding Level of Care Code ED [employer]isher [employer] for Yasmin Desai
[2024-03-13 12:31] LABS: Basophils # 0.1 10^3/uL (0.0-0.1); Basophils % 0.7 %; Eosinophils # 0.2 10^3/uL (0.0-0.8); Hematocrit 42.4 % (36-47); Lymphocytes # 3.7 10^3/uL (0.8-4.8); Lymphocytes % 30.8 %; Mean Corpuscular HGB Conc 33.5 g/dL (30-55); Mean Corpuscular Hemoglobin 30.7 pg (27-33); Mean Corpuscular Volume 91.6 fl (85-98); Mean Platelet Volume 9.6 fL (7.4-10.4); Monocytes # 0.9 10^3/uL (0.2-0.9); Monocytes % 7.3 %; Neutrophils % 58.9 %; Nucleated Red Blood Cells % 0 %; Platelet Count 315 10^3/cmm (157-399); Red Blood Count 4.63 10^6/uL (3.85-5.65); Red Cell Distribution Width 12.5 % (12.1-15.1); White Blood Count 12.06 10^3/uL (3.29-11.43)
--- NOTE | 2024-03-13 12:38 | CT_ITS ---
WS: [id number] CT ABDOMEN AND PELVIS WITH CONTRAST HISTORY: severe abdominal pain; hx of pancreatitis TECHNIQUE: Imaging performed of the abdomen and pelvis with IV contrast. Single phase imaging of the abdomen. Coronal and sagittal reformats are submitted. All CT scans at [facility] use at [address] one of these dose optimization techniques: automated exposure control; mA and/or kV adjustment per patient size (includes targeted exams where dose is matched to clinical indication); or iterative re construction. IV CONTRAST: Omnipaque 350; 100 mL IV. Oral contrast: No DLP: 508.43 mGy.cm COMPARISON: 03/02/2012 Lower thorax: Lung bases are clear. Heart is normal size. No hiatal hernia. Liver/biliary system: Normal size liver. Focal fatty sparing along the falciform ligament. There is m ild intrahepatic and extrahepatic bile duct dilatation. Common bile duct measures 1.0 cm. Common bile duct tapers to the pancreatic head. At the pancreatic head the maximum diameter is 8.6 mm. Intrahepa tic dilatation is new since 03/02/2012. Gallbladder: Prior cholecystectomy. Pancreas: Normal size pancreas. There is very slight prominence of the pancreatic duct. No mass is no amira at the pancreatic head. Duct measures approximately 2 mm. Spleen: Normal size spleen. No mass or infarct. Adrenal glands: Normal. Right kidney: Normal. Left kidney: Normal size kidney. Nonobstructing calcification 2 mm in the upper pole. Aorta: Mild atherosclerosis. Mesenteric arteries are patent. Lymphadenopathy: None. Free fluid: None. GI tract: No GI tract obstruction. Mild gastric wall thickening may in part be due to under distentio n. Top normal size small bowel loops in the LEFT abdomen. No obstructive pattern. Prior appendectomy. Abdominal wall: Unremarkable abdominal wall. No hernia. Pelvis: Prior hysterectomy. No free fluid or adenopathy. Bones: Unremarkable. CT/CT abdomen pelvis w con* [id number] IMPRESSION: 1. Prior cholecystectomy. 2. Intrahepatic and extrahepatic bile duct dilatation. Common bile duct measur es 1.0 cm. No mass or stone identified in the distal common bile duct. The dila tation may be physiologic and related to the cholecystectomy. 3. Pancreatic duct is top normal size. Mildly prominent small bowel loops in t he LEFT upper abdomen. No obstruction. 4. No free air or free fluid.
[2024-03-13] MEDS: ondansetron 2 mg/ML SDV 2 mL 4 MG IVP (12:43)
[2024-03-13 12:45] VITALS: RESP 22
[2024-03-13] MEDS: morphine 4 mg/mL SDV 1 mL IVP (12:45)
[2024-03-13 12:47] VITALS: BP 162/102; PULSE 101; O2SAT 98
[2024-03-13] MEDS: sodium chloride 0.9% 1,000 ML 999 ML IV (12:47)
[2024-03-13] MEDS: iohexol 350 mg/mL 500 mL Btl (per mL) IV (12:59)
[2024-03-13 13:02] LABS: Alanine Aminotransferase 12 U/L (0-33); Albumin Level 4.2 g/dL (3.5-5.2); Alkaline Phosphatase 139 U/L (35-105); Aspartate Amino Transferase 27 U/L (0-32); Blood Urea Nitrogen 8 mg/dL (6-20); Calcium 9.1 mg/dL (8.5-10.5); Carbon Dioxide 26 mmol/L (22-29); Chloride 104 mmol/L (98-107); Creatinine Clr Calc Pharmacy 105.8752; Glomerular Filtration Rate 104.6 mL/min (90-130); Glucose 106 mg/dL (65-115); Lipase 18 U/L (13-60); Osmolality Calculated 291 mOsm/kg (285-295); Sodium 141 mmol/L (136-145); Total Bilirubin 0.5 mg/dL (0.15-1.2); Total Protein 7.2 g/dL (6.6-8.7)
[2024-03-13 13:04] LABS: Anion Gap 15.1 (5-19); Potassium 4.1 mmol/L (3.5-5.1)
[2024-03-13 13:29] VITALS: RESP 20
[2024-03-13] MEDS: HYDROmorphone 1 mg/mL INJ 1 mL IVP (13:29)
[2024-03-13 13:34] LABS: Add Urine Microscopic? NO
[2024-03-13 13:40] LABS: Bilirubin Urine Neg (Negative); Blood Urine Neg (Negative); Charge for UA Resulting for Rev; Glucose Urine UA Norm (Normal); Ketones Urine Negative (Negative); Leukocyte Esterase Urine Negative (Negative); Nitrate Urine Negative (Negative); Protein Urine Neg (Negative); Specific Gravity, Urine 1.015 (1.005-1.030); Urine Appearance Clear (CLEAR); Urine Color Yellow (Yellow); Urobilinogen Urine Norm (Negative); pH Urine 6 (5-7)
--- NOTE | 2024-03-13 14:11 | PC.PHAR ---
Patient requested all medications be removed from her list ..She no longer is taking anything . 03/13/24 2:00pm
[2024-03-13] MEDS: lidocaine 2% viscous 15 ML, aluminum-mag hydrox-simethicon 30 ML, sucralfate oral liq 1 GM PO (14:34)
[2024-03-13 14:49] VITALS: BP 150/83; PULSE 94; O2SAT 99
== END 2024-03-13 14:56 | disposition home or self-care (01) ==
PROVIDERS: Emergency Provider Physician Assistant; PCP Family Medicine
DX: R10.10 Upper abdominal pain, unspecified (principal); F17.210 Nicotine dependence, cigarettes, uncomplicated
CPT/HCPCS: 74177; 80053; 81003; 83690; 85025; 96361; 96374; 96375; 99285; J1170; J2270; J2405; J7030

== ENCOUNTER → 2024-05-10 08:18 | Outpatient (BNVA) | payer MEDICAID, SELFPAY | PROVIDERS: PCP Family Medicine; Referring Provider Family Medicine; Visit Provider Surgery | DX: K21.9 Gastro-esophageal reflux disease without esophagitis (principal); R11.14 Bilious vomiting; R19.7 Diarrhea, unspecified; R11.15 Cyclical vomiting syndrome unrelated to migraine | CPT/HCPCS: 36415; 86003; 86008; 99204 ==

== ENCOUNTER → 2024-05-15 11:14 | Outpatient (BNVA) | payer MEDICAID, SELFPAY | PROVIDERS: PCP Family Medicine | DX: J06.9 Acute upper respiratory infection, unspecified (principal) | CPT/HCPCS: 87400; 87426 ==

== ENCOUNTER 2024-06-06 07:44 | Day surgery (SDC) | payer MEDICAID, SELFPAY ==
[2024-06-06 08:10] VITALS: BP 113/71; PULSE 80; RESP 18; TEMP 36.8; O2SAT 96; BMI 27.8
[2024-06-06] MEDS: sodium chloride 0.9% 500 ML 15 ML IV (08:17)
--- NOTE | 2024-06-06 09:19 | ANES.PREANE2 ---
Pre-Anesthetic Assessment Height/Weight: Height 5 ft 4 in Weight 162 lb Temp Pulse Resp BP Pulse Ox O2 Del Method 98.2 F 80 18 113/71 96 Room Air 06/06/24 08:10 06/06/24 08:10 06/06/24 08:10 06/06/24 08:10 06/06/24 08:10 06/06/24 08:10 Preop Diagnosis: GERD, colon screening Operation Date: 06/06/24 09:00 Proposed Procedures p EGD 28544, 01195, G0105, R19.7, K21.9(Not Applicable) - Justin Jacob DO s Colonoscopy(Not Applicable) - Justin Jacob DO Was Beta Tahira taken within 24 hours: N/A Was Clonidine taken within 24 hours: N/A Last intake: Intake Last Liquid Date 06/05/24 Last Liquid Time 20:00 Last Solid Date 06/04/24 Last Solid Time 17:00 Social Tobacco and No alcohol Exam alert, oriented x 3 and regular rate & rhythm Decreased breath sounds bilaterally Airway Submandibular: within normal limits Cervical ROM: within normal limits Mallampati: Class III Dentition: other (Edentulous) Anesthetic Plan ASA status: 3 Anesthesia: MAC Other: No prior issues with anesthesia Completed bowel prep History of GERD on Protonix COPD, current smoker, nicotine and marijuana PTSD Chronic pancreatitis EKG sinus rhythm Plan for MAC anesthetic Medications/Allergies Home Medications Medication Instructions Recorded Confirmed Last Taken Type gabapentin 100 mg capsule 100 mg PO BID #60 caps 04/04/24 06/04/24 06/05/24 Rx acyclovir 400 mg tablet 400 mg PO TID #20 tabs 05/01/24 06/04/24 06/05/24 Rx pantoprazole 40 mg tablet,delayed 40 mg PO BID #60 tabs 05/01/24 06/04/24 06/05/24 Rx release albuterol sulfate 90 mcg/actuation 2 puff inhalation 6XD PRN 05/15/24 06/06/24 06/06/24 Rx aerosol inhaler (Ventolin HFA) shortness of breath or wheezing 0600 #8.5 grams prednisone 20 mg tablet 20 mg PO DAILY 5 days #5 tabs 05/15/24 06/04/24 06/05/24 Rx ondansetron 8 mg disintegrating 8 mg PO Q8H PRN nausea and 05/22/24 06/06/24 06/05/24 Rx tablet vomiting #7 tabs tizanidine 4 mg tablet 4 mg PO BID PRN muscle spasticity 06/04/24 06/04/24 06/05/24 Rx #60 tabs Allergies Allergy/AdvReac Type Severity Reaction Status Date / Time bupropion [From Wellbutrin] Allergy ADR-Cramping Verified 05/21/24 11:36 of the Muscles buspirone [From BuSpar] Allergy ADR-Agitate Verified 05/21/24 11:36 d Current Medications Generic Name Dose Route Start Last Admin Trade Name Freq PRN Reason Stop Dose Admin Sodium Chloride 500 mls @ 15 mls/hr 06/06/24 08:09 06/06/24 08:17 Sodium Chloride 0.9% IV 06/07/24 08:08 15 mls/hr .Q24H PRN Administration COLONOSCOPY FLUIDS PFSH Anesthesia Medical History Psychiatric care Chronic pancreatitis Chronic constipation GERD (gastroesophageal reflux disease) Ulcer Vertigo RLS (restless legs syndrome) Asthma Allergic rhinitis Chronic low back pain Insomnia Surgical History H/O: hysterectomy History of cholecystectomy History of appendectomy Family History Mother Hypothyroidism Other Hypertension Social History Smoking and tobacco/nicotine status: current every day tobacco/nicotine user cigarettes Packs smoked per day: 1 Alcohol intake: former Former alcohol use details: NOT HEAVY Substance/Drug Use: current Substance/Drug use frequency: daily Caregiver/support person: No Lives independently: Yes service: No Current occupational status: unemployed Current occupational exposures/hazards: No Female Reproductive History Spontaneous abortions: No Data Anesthesia Cardiac Studies: No Data to Display
--- NOTE | 2024-06-06 09:35 | W.PM.OPSUD ---
Surgery/Procedure H&P Update DATE OF PROCEDURE: June 06, 2024 DATE H&P PERFORMED: 05/10/24 H&P UPDATE INFORMATION: I have reviewed H&P completed within last 30 days, I have examined patient prior to procedure and No changes to prior documentation PREOP DIAGNOSIS: GERD, colon screening PLANNED PROCEDURE: Operation Date: 06/06/24 09:00 Proposed Procedures p EGD 22761, 27057, G0105, R19.7, K21.9(Not Applicable) - DO sari Padilla Colonoscopy(Not Applicable) - Justin Jacob DO
[2024-06-06 10:08] VITALS: BP 105/67; PULSE 89; RESP 20; TEMP 36.3; O2SAT 97
[2024-06-06 10:31] VITALS: BP 128/69; PULSE 85; RESP 17; O2SAT 97
--- NOTE | 2024-06-06 10:38 | ANE.PACU2 ---
Inpatient post-anesthesia follow up: Airway intact: Yes Vital signs: Temperature 97.3 F Pulse Rate 85 Respiratory Rate 17 Blood Pressure 128/69 Pulse Oximetry 97 Oxygen Delivery Me thod Room Air Oxygen Flow Rate Fraction of Inspir ed Oxygen Hydration adequate: Yes Nausea and vomiting: No Pain level: 1 Mental status: Baseline
[2024-06-06 11:05] LABS: C.Diff PCR (Lab) NEGATIVE (Negative)
== END 2024-06-06 10:38 | disposition home or self-care (01) ==
PROVIDERS: PCP Family Medicine; Visit Provider Surgery
PROC: 0DJ08ZZ Inspection of Upper Intestinal Tract, Via Natural or Artificial Opening Endoscopic (ICD-10-PCS; CPT 43235; principal; 2024-06-06 09:00)
PROC: 0DJD8ZZ Inspection of Lower Intestinal Tract, Via Natural or Artificial Opening Endoscopic (ICD-10-PCS; CPT 45378; 2024-06-06 09:00)
DX: Z12.11 Encounter for screening for malignant neoplasm of colon (principal); K21.9 Gastro-esophageal reflux disease without esophagitis; K64.8 Other hemorrhoids; K21.00 Gastro-esophageal reflux disease with esophagitis, without bleeding; K29.50 Unspecified chronic gastritis without bleeding; D12.2 Benign neoplasm of ascending colon; D12.5 Benign neoplasm of sigmoid colon; D12.3 Benign neoplasm of transverse colon; J44.9 Chronic obstructive pulmonary disease, unspecified; F17.210 Nicotine dependence, cigarettes, uncomplicated
CPT/HCPCS: 43239; 45385; 82274; 83630; 87045; 87177; 87209; 87427; 87449; 87493; 88305; 88342; J2704; J7040

== ENCOUNTER → 2024-06-13 09:31 | Outpatient (BNVA) | payer MEDICAID, SELFPAY | PROVIDERS: PCP Family Medicine; Visit Provider Podiatrist Foot & Ankle Surgery | DX: G62.9 Polyneuropathy, unspecified; R09.89 Other specified symptoms and signs involving the circulatory and respiratory systems; I73.9 Peripheral vascular disease, unspecified; M72.2 Plantar fascial fibromatosis; M20.41 Other hammer toe(s) (acquired), right foot; M20.42 Other hammer toe(s) (acquired), left foot; M21.621 Bunionette of right foot; M21.622 Bunionette of left foot | CPT/HCPCS: 99203 ==

== ENCOUNTER → 2024-06-25 08:15 | Outpatient (BNVA) | payer MEDICAID, SELFPAY | PROVIDERS: PCP Family Medicine; Visit Provider Surgery | DX: Z09 Encounter for follow-up examination after completed treatment for conditions other than malignant neoplasm (principal); K21.9 Gastro-esophageal reflux disease without esophagitis; K13.70 Unspecified lesions of oral mucosa; D12.6 Benign neoplasm of colon, unspecified; K21.00 Gastro-esophageal reflux disease with esophagitis, without bleeding | CPT/HCPCS: 99214 ==

== ENCOUNTER 2024-07-05 11:37 | Outpatient (CLI) | payer MEDICAID, SELFPAY ==
--- NOTE | 2024-07-05 11:43 | XR_ITS ---
WS: [id number] Right hip, AP and frog-leg views, 07/05/2024 Clinical Data: 2 weeks of right hip pain. no trauma Comparison: Right hip, 2012 Findings: No fractures or dislocations are seen. The right hip shows no erosion, sclerosis, narrowing, cyst for mation or fragmentation of the right femoral head. There is a small right acetabular lip.. The soft t issues are not remarkable. The adjacent pelvis is normal. There are incidental soft tissue calcifications lateral to the right hip. 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 Tonnis classification: grade 1: sclerosis of femoral head and acetabulum or sli ght joint space narrowing or slight lipping at joint margins
== END 2024-07-05 11:38 | disposition home or self-care (01) ==
PROVIDERS: PCP Family Medicine; Visit Provider Emergency Medicine
DX: M25.551 Pain in right hip (principal); M24.851 Other specific joint derangements of right hip, not elsewhere classified; R93.89 Abnormal findings on diagnostic imaging of other specified body structures
CPT/HCPCS: 73502; J1885

== ENCOUNTER → 2024-07-23 09:34 | Outpatient (BNVA) | payer MEDICAID, SELFPAY | PROVIDERS: PCP Family Medicine; Visit Provider Family Medicine | DX: F25.1 Schizoaffective disorder, depressive type (principal); R11.14 Bilious vomiting; G62.9 Polyneuropathy, unspecified; R00.2 Palpitations; R79.89 Other specified abnormal findings of blood chemistry; E55.9 Vitamin D deficiency, unspecified; L81.9 Disorder of pigmentation, unspecified; L98.9 Disorder of the skin and subcutaneous tissue, unspecified | CPT/HCPCS: 80053; 80061; 82306; 82607; 84439; 84443; 85025; 88305 ==

== ENCOUNTER → 2024-09-04 10:10 | Outpatient (BNVA) | payer MEDICAID, SELFPAY | PROVIDERS: PCP Family Medicine; Visit Provider Nurse Practitioner Family | DX: L28.1 Prurigo nodularis (principal); L98.1 Factitial dermatitis; R58 Hemorrhage, not elsewhere classified; R20.8 Other disturbances of skin sensation; R20.2 Paresthesia of skin; L85.3 Xerosis cutis; D22.5 Melanocytic nevi of trunk; B07.8 Other viral warts; L53.8 Other specified erythematous conditions; D48.5 Neoplasm of uncertain behavior of skin | CPT/HCPCS: 11102; 17110; 99204 ==

== ENCOUNTER 2024-09-06 03:55 | Emergency (ER) | payer MEDICAID, SELFPAY ==
[2024-09-06 03:57] VITALS: BP 133/85; PULSE 82; RESP 18; TEMP 36.8; O2SAT 96; BMI 27.4
--- NOTE | 2024-09-06 04:48 | CTR_ITS ---
PROCEDURE INFORMATION: Exam: CT Abdomen And Pelvis Without Contrast Exam date and time: 09/06/2024 5:02 AM Age: 54 years old Clinical indication: Abdominal pain; Flank; Right lower quadrant (rlq); Additional info: Rlq and R flank pain TECHNIQUE: Imaging protocol: Computed tomography of the abdomen and pelvis without contrast. Radiation optimization: All CT scans at this facility use at least one of these dose optimization techniques: automated exposure control; mA and/or kV adjustment per patient size (includes targeted exams where dose is matched to clinical indication); or iterative reconstruction. COMPARISON: CT abdomen pelvis w con* [id number] 03/13/2024 12:57 PM RADIATION DOSE METRICS: Total DLP (mGy-cm): 564.83 FINDINGS: Lungs: Lung bases are clear as visualized. Heart: Base of heart is unremarkable as visualized. Liver: Normal. No mass. Gallbladder and biliary ducts: Status post cholecystectomy. Stable physiologic biliary prominence from prior comparison. Pancreas: Mild atrophic appearance of the pancreas. Spleen: Splenic granuloma. Adrenal glands: Normal. No mass. Kidneys and ureters: Nonobstructive left nephrolithiasis. Stomach and bowel: Mild colonic stool burden. Appendix: No evidence of appendicitis. Intraperitoneal space: Unremarkable. No free air. No significant fluid collection. Vasculature: Moderate atherosclerotic disease of the visualized aorta extending into the major lower abdominal branches. Pelvic phleboliths. Lymph nodes: Unremarkable. No enlarged lymph nodes. Urinary bladder: Urinary bladder is underdistended. Reproductive: Status post hysterectomy. Stable uniform hyperattenuating nodule of the vaginal cuff. Bones/joints: Mild degenerative change of the visualized osseous structures. Soft tissues: Unremarkable. CT/CT abdomen pelvis wo con [id number] IMPRESSION: 1. Nonobstructive left nephrolithiasis. 2. Stable hyperattenuating nodule of the vaginal cuff, consider ultrasound for further assessment.
[2024-09-06 04:57] LABS: Basophils # 0.1 10^3/uL (0.0-0.1); Basophils % 0.6 %; Eosinophils # 0.2 10^3/uL (0.0-0.8); Eosinophils % 1.6 %; Hematocrit 41.4 % (36-47); Lymphocytes # 5.1 10^3/uL (0.8-4.8); Lymphocytes % 45.9 %; Mean Corpuscular HGB Conc 32.6 g/dL (30-55); Mean Corpuscular Hemoglobin 30.1 pg (27-33); Mean Corpuscular Volume 92.2 fl (85-98); Mean Platelet Volume 10.3 fL (7.4-10.4); Monocytes % 9.1 %; Neutrophils # 4.69 10^3/uL (1.8-7.7); Neutrophils % 42.3 %; Nucleated Red Blood Cells % 0 %; Platelet Count 250 10^3/cmm (157-399); Red Blood Count 4.49 10^6/uL (3.85-5.65); Red Cell Distribution Width 13.7 % (12.1-15.1); White Blood Count 11.11 10^3/uL (3.29-11.43)
[2024-09-06 05:06] LABS: Bilirubin Urine Negative (Negative); Blood Urine Negative (Negative); Glucose Urine UA Negative (Normal); Ketones Urine Negative (Negative); Leukocyte Esterase Urine Negative (Negative); Nitrate Urine Negative (Negative); Protein Urine Negative (Negative); Specific Gravity, Urine 1.007 (1.005-1.030); Urine Appearance Clear (CLEAR); Urine Color Yellow (Yellow); Urobilinogen Urine 0.2 mg/dL (Negative)
[2024-09-06 05:08] LABS: Alanine Aminotransferase 8 U/L (0-33); Albumin Level 4.2 g/dL (3.5-5.2); Alkaline Phosphatase 131 U/L (35-105); Aspartate Amino Transferase 15 U/L (0-32); Blood Urea Nitrogen 17 mg/dL (6-20); Calcium 9.2 mg/dL (8.5-10.5); Carbon Dioxide 29 mmol/L (22-29); Chloride 101 mmol/L (98-107); Creatinine Clr Calc Pharmacy 78.4937; Globulin 3.2 g/dL (1.3-4.6); Glomerular Filtration Rate 74.7 mL/min (90-130); Glucose 100 mg/dL (65-115); Lipase 26 U/L (13-60); Osmolality Calculated 288 mOsm/kg (285-295); Sodium 138 mmol/L (136-145); Total Bilirubin 0.3 mg/dL (0.15-1.2); Total Protein 7.4 g/dL (6.6-8.7)
[2024-09-06 05:11] LABS: Add Urine Microscopic? YES; Bacteria Urine None Seen /hpf; Hyaline Casts Urine 0-4 /lpf; RBC Urine 0-2 /hpf (0-2); Squamous Epithelial Cell Urine 0-5 /hpf (0-5); WBC Urine 0-5 /hpf (0-5)
[2024-09-06 05:34] VITALS: RESP 18; O2SAT 99
[2024-09-06] MEDS: sodium chloride 0.9% 1,000 ML 999 ML IV (05:34)
[2024-09-06] MEDS: morphine 4 mg/mL SDV 1 mL 2 MG IVP (05:34)
[2024-09-06] MEDS: ketorolac 30 mg/mL INJ IVP (05:34)
[2024-09-06] MEDS: ondansetron 2 mg/ML SDV 2 mL 4 MG IVP (05:35)
--- NOTE | 2024-09-06 05:45 | ED_ITS ---
HPI - Abdominal Pain 2 General: Chief Complaint: Abdominal Pain Stated Complaint: Kidney Pain Time Seen by Provider: 09/06/24 04:41 History of Present Illness: This patient is a 54-year-old white female who presents to the emergency department complaining of right lower quadrant abdominal pain that radiates to the right flank. She states this pain started 3 days ago. She does have some nausea but no vomiting. No dysuria or hematuria. No constipation or diarrhea. No fever. Her past surgical history includes a cholecystectomy, appendectomy and hysterectomy. Associated Symptoms: Reports nausea Related Data Previous Rx's ?Medication ?Instructions ?Recorded albuterol sulfate 90 mcg/actuation 2 puff inhalation 6 XD PRN 05/15/24 aerosol inhaler (Ventolin HFA) shortness of breath or wheezing #8.5 grams diclofenac sodium 3 % topical gel 1 applic topical BID PRN muscle 07/05/24 pain, tension #100 grams diclofenac sodium 50 mg 50 mg PO BID PRN pain #60 ta bs 07/19/24 tablet,delayed release nystatin 100,000 unit/mL oral 4 ml buccal BID 10 days #80 mL 07/19/24 suspension acyclovir 400 mg tablet 400 mg PO TID #20 tabs 08/16 pantoprazole 40 mg tablet,delayed 40 mg PO BID 30 days #60 tabs 08/16/24 release gabapentin 300 mg capsule See Rx Instructions .Route 0 08/21/24 .COMPLEX #60 caps baclofen 10 mg tablet 10 mg PO TID #90 tabs cholecalciferol (vitamin D3) 1,250 1,250 mcg PO .weekl y #30 caps 08/27/24 mcg (50,000 unit) capsule mecobalamin (vitamin B12) 10,000 1,000 mcg IM .weekly #1 ea 08/27/24 mcg solution for injection syringe with needle, safety 3 mL #50 ea 08/27/24 25 gauge x 5/8 (Monoject Safety Syringes) meclizine 25 mg tablet 25 mg PO TID PRN dizziness # 60 tabs 08/31/24 dicyclomine 20 mg tablet 20 mg PO QID PRN abdominal p ain 09/06/24 #20 tabs Allergies Allergy/AdvReac Type Severity Reaction Status Date / Time bupropion (From Wellbutrin) Allergy ADR-Cramping Verified 09/06/24 04:05 of the Muscles buspirone (From BuSpar) Allergy ADR-Agitate Verified 09/06/24 04:05 d Review of Systems 2 General: Reports: 10 or more systems reviewed and unremarkable except in HPI and below GI: Reports: abdominal pain and nausea : Reports: flank pain PFSH ED 2 PFSH: Medical History (Updated 09/06/24 @ 06:13 by Miguel Lieberman MD) GERD with esophagitis Tubular adenoma of colon Chronic pancreatitis Chronic constipation Ulcer Vertigo RLS (restless legs syndrome) Asthma Allergic rhinitis Chronic low back pain Insomnia Surgical History H/O: hysterectomy History of cholecystectomy History of appendectomy Family History Mother Hypothyroidism Other Hypertension Social History Smoking and tobacco/nicotine status: current every day tobacco/nicotine user cigarettes Packs smoked per day: 1 Alcohol intake: former Former alcohol use details: NOT HEAVY Substance/Drug Use: current Substance/Drug use frequency: daily Caregiver/support person: No Lives independently: Yes service: No Current occupational status: unemployed Current occupational exposures/hazards: No Female Reproductive History: Spontaneous abortions: No Physical Exam 2 Const: COMMON NORMALS: no acute distress, patient oriented x3 and no limitations GENERAL APPEARANCE: cooperative HENMT: COMMON NORMALS: normocephalic, atraumatic, Normal nasal mucous membranes and turbinates present, moist oral mucous membranes and oropharynx normal HEAD & SCALP: normal to inspection, normocephalic and atraumatic F SKIP & SINUS: normal facial exam NOSE: Normal nasal mucous membranes and turbinates present Eye: COMMON NORMALS: Equal, round and reactive pupils present, EOMs intact bilaterally and conjunctivae normal GENERAL EYE: appearance normal, both eyes and all related structures CONJUNCTIVA: Yes conjunctivae normal PUPIL: Yes Equal, round and reactive pupils present Neck/C-Spine: COMMON NORMALS: supple and no JVD Chest: COMMONS NORMALS: normal inspection of the chest Resp: COMMON NORMALS: normal respiratory effort and clear to auscultation bilaterally AUSCULTATION: clear to auscultation bilaterally Cardio: COMMON NORMALS: no JVD, regular rate, regular rhythm, No gallops present (Cardio), No murmurs present (Cardio) and No rub (Cardio) RATE: r egular rate RHYTHM: regular rhythm GI: COMMON NORMALS: Normal to inspection, nondistended, normoactive bowel sounds present and Soft to palpation AUSCULTATION: Yes normoactive bowel sounds PALPATION: Yes Soft to palpation and Yes Tenderness to palpation present (GI) Details: RLQ : COMMON NORMALS: Yes no CVA tenderness BLADDER/KIDNEY EXAM: Yes no CVA tenderness Back/Pelvis: COMMON NORMALS: no CVA tenderness and thoracic and lumbar spine normal to inspection Extremity: COMMON NORMALS: normal to inspection Neuro: COMMON NORMALS: patient oriented x3 and CN's II-XII intact bilaterally Psych: COMMON NORMALS: mental status grossly normal, Normal thought process present and cooperative THOUGHT PROCESS: Normal thought process present Skin: COMMON NORMALS: no rashes or lesions noted, turgor normal and no jaundice GENERAL SKIN EXAM: no rashes or lesions noted and turgor normal Course 2 Vital Signs: Vital signs: Vital Signs Temperature 98.2 F 09/06/24 03:57 Pulse Rate 82 09/06/24 03:57 Respiratory Rate 18 09/06/24 05:34 Blood Pressure 133/85 09/06/24 03:57 Pulse Oximetry 99 09/06/24 05:34 Oxygen Delivery Me thod Room Air 09/06/24 03:57 MDM - Abdominal Pain Medical Decision Making Patient was given a 1 L bolus of normal saline, 2 mg of morphine, 30 mg of Toradol and 4 mg of Zofran IV. CBC, CMP and lipase were normal. Urinalysis normal. CT scan of the abdomen pelvis was read by the radiologist. No hydronephrosis or ureteral stones. Nothing acute. Patient is feeling better after the medications. I did place her on Bentyl. She is already on NSAID and muscle relaxer. Recommended she follow-up with her primary care provider in 3 to 5 days for recheck. She was discharged in stable condition. Lab Data 09/06/24 04:02 09/06/24 04:02 Labs/Radiology: Radiology Impressions Abdomen/Pelvis CT 09/06/24 04:48 IMPRESSION: 1. Nonobstructive left nephrolithiasis. 2. Stable hyperattenuating nodule of the vaginal cuff, consider ultrasound for further assessment. Laboratory Results WBC 11.11 10^3/uL (3.29-11.43) 09/06/24 04:02 RBC 4.49 10^6/uL (3.85-5.65) 09/06/24 04:02 Hgb 13.50 g/dL (11.27-16.99) 09/06/24 04:02 Hct 41.4 % (36-47) 09/06/24 04:02 MCV 92.2 fl (85-98) 09/06/24 04:02 MCH 30.1 pg (27-33) 09/06/24 04:02 MCHC 32.6 g/dL (30-55) 09/06/24 04:02 RDW 13.7 % (12.1-15.1) 09/06/24 04:02 Plt Count 250 10^3/cmm (157-399) 09/06/24 04:02 MPV 10.3 fL (7.4-10.4) 09/06/24 04:02 Neut % (Auto) 42.3 % 09/06/24 04:02 Lymph % (Auto) 45.9 % 09/06/24 04:02 Lamar % (Auto) 9.1 % 09/06/24 04:02 Eos % (Auto) 1.6 % 09/06/24 04:02 Baso % (Auto) 0.6 % 09/06/24 04:02 Neut # (Auto) 4.69 10^3/uL (1.8-7.7) 09/06/24 04:02 Lymph # (Auto) 5.1 10^3/uL (0.8-4.8) H 09/06/24 04:02 Lamar # (Auto) 1.0 10^3/uL (0.2-0.9) H 09/06/24 04:02 Eos # (Auto) 0.2 10^3/uL (0.0-0.8) 09/06/24 04:02 Baso # (Auto) 0.1 10^3/uL (0.0-0.1) 09/06/24 04:02 Nucleated RBC % (auto) 0 % 09/06/24 04:02 Nucleated RBCs # 0.0 /100WBC 09/06/24 04:02 Sodium 138 mmol/L (136-145) 09/06/24 04:02 Potassium 4.0 mmol/L (3.5-5.1) 09/06/24 04:02 Chloride 101 mmol/L (98-107) 09/06/24 04:02 Carbon Dioxide 29 mmol/L (22-29) 09/06/24 04:02 Anion Gap 12.0 (5-19) 09/06/24 04:02 BUN 17 mg/dL (6-20) 09/06/24 04:02 Creatinine 0.8 mg/dL (0.5-0.9) 09/06/24 04:02 GFR Calculation 74.7 mL/min (90-130) L 09/06/24 04:02 Glucose 100 mg/dL (65-115) 09/06/24 04:02 Calculated Osmolality 288 mOsm/kg (285-295) 09/06/24 04:02 Calcium 9.2 mg/dL (8.5-10.5) 09/06/24 04:02 Total Bilirubin 0.3 mg/dL (0.15-1.2) 09/06/24 04:02 AST 15 U/L (0-32) 09/06/24 04:02 ALT 8 U/L (0-33) 09/06/24 04:02 Alkaline Phosphatase 131 U/L (35-105) H 09/06/24 04:02 Total Protein 7.4 g/dL (6.6-8.7) 09/06/24 04:02 Albumin 4.2 g/dL (3.5-5.2) 09/06/24 04:02 Globulin 3.2 g/dL (1.3-4.6) 09/06/24 04:02 Lipase 26 U/L (13-60) 09/06/24 04:02 Urine Color Yellow (Yellow) 09/06/24 04:02 Urine Appearance Clear (CLEAR) 09/06/24 04:02 Urine pH 7.0 (5-7) 09/06/24 04:02 Ur Specific [place] 1.007 (1.005-1.030) 09/06/24 04:02 Urine Protein Negative (Negative) 09/06/24 04:02 Urine Glucose (UA) Negative (Normal) 09/06/24 04:02 Urine Ketones Negative (Negative) 09/06/24 04:02 Urine Blood Negative (Negative) 09/06/24 04:02 Urine Nitrate Negative (Negative) 09/06/24 04:02 Urine Bilirubin Negative (Negative) 09/06/24 04:02 Urine Urobilinogen 0.2 mg/dL (Negative) 09/06/24 04:02 Ur Leukocyte Esterase Negative (Negative) 09/06/24 04:02 Urine RBC 0-2 /hpf (0-2) 09/06/24 04:02 Urine WBC 0-5 /hpf (0-5) 09/06/24 04:02 Ur Squamous Epith Cells 0-5 /hpf (0-5) 09/06/24 04:02 Amorphous Sediment Not Reportable 09/06/24 04:02 Urine Bacteria None seen /hpf (NONE) 09/06/24 04:02 Hyaline Casts 0-4 /lpf H 09/06/24 04:02 All radiology interpretation(s) finalized by discharge Discharge Plan Discharge Patient Disposition: Home Clinical Impression: Back pain Qualifiers: Back pain location: low back pain Chronicity: acute Back pain laterality: right Sciatica presence: without sciatica Qualified Code(s): M54.50 - Low back pain, unspecified Abdominal pain Qualifiers: Abdominal location: right lower quadrant Qualified Code(s): R10.31 - Right lower quadrant pain Condition: Stable Prescriptions: New dicyclomine 20 mg tablet 20 mg PO QID PRN (Reason: abdominal pain) Qty: 20 0RF No Action nystatin 100,000 unit/mL suspension 4 ml buccal BID 10 Days Qty: 80 0RF Rx Instructions: Swish 30 around mouth x 30-60 seconds and spit diclofenac sodium 50 mg tablet,delayed release (DR/EC) 50 mg PO BID PRN (Reason: pain) Qty: 60 2RF albuterol sulfate [Ventolin HFA] 90 mcg/actuation HFA aerosol inhaler 2 puff inhalation 6XD PRN (Reason: shortness of breath or wheezing) Qty: 8.5 0RF diclofenac sodium 3 % gel 1 applic topical BID PRN (Reason: muscle pain, tension) Qty: 100 0RF Rx Instructions: rub in well mecobalamin (vitamin B12) 10,000 mcg recon soln 1,000 mcg IM .weekly Qty: 1 2RF baclofen 10 mg tablet 10 mg PO TID Qty: 90 3RF (DME) Monoject Safety Syringes 3 mL 25 gauge x 5/8 syringe See Rx Instructions .ROUTE .MEDSUPPLY Qty: 50 2RF Rx Instructions: Please also include drawing needles - 18G. cholecalciferol (vitamin D3) 1,250 mcg (50,000 unit) capsule 1,250 mcg PO .weekly Qty: 30 1RF Rx Instructions: Take one capsule PO every 7 days. pantoprazole 40 mg tablet,delayed release (DR/EC) 40 mg PO BID 30 Days Qty: 60 11RF acyclovir 400 mg tablet 400 mg PO TID Qty: 20 1RF Rx Instructions: Take TID x 5 days when fever blister starts. gabapentin 300 mg capsule See Rx Instructions .ROUTE .COMPLEX Qty: 60 11RF Dose Instruction: Take 1 capsule by mouth twice daily Rx Instructions: Take 1 capsule by mouth twice daily meclizine 25 mg tablet 25 mg PO TID PRN (Reason: dizziness) Qty: 60 1RF Discharge Orders: Discharge ED (Routine); Ordered 09/06/24 Ordered By: Miguel Lieberman Referrals: Nikhil Talbot DO [Primary Care Provider] - Patient Instructions: Abdominal Pain (ED), Flank Pain (ED) Activity Restrictions/Additional Instructions: Follow-up with your primary care provider in 3 to 5 days for recheck. Print Language: Welsh Coding Level of Care Code ED [employer] Services Dean for Yasmin Desai
[2024-09-06 06:38] VITALS: BP 93/67; PULSE 67; O2SAT 99
== END 2024-09-06 06:42 | disposition home or self-care (01) ==
PROVIDERS: Emergency Provider Emergency Medicine; PCP Family Medicine
DX: M54.50 Low back pain, unspecified (principal); R10.31 Right lower quadrant pain; F17.210 Nicotine dependence, cigarettes, uncomplicated
CPT/HCPCS: 74176; 80053; 81001; 83690; 85025; 96374; 96375; 99285; J1885; J2270; J2405; J7030

== ENCOUNTER 2024-09-11 16:22 | Emergency (ER) | payer MEDICAID, SELFPAY ==
[2024-09-11 16:29] VITALS: BP 102/63; PULSE 91; TEMP 37.2; O2SAT 93; BMI 27.4
--- NOTE | 2024-09-11 17:13 | CTR_ITS ---
PROCEDURE INFORMATION: Exam: CT Head Without Contrast Exam date and time: 09/11/2024 5:20 PM Age: 54 years old Clinical indication: Pain; Headache not specified; Additional info: Acute COVARRUBIAS no COVARRUBIAS history no trauma TECHNIQUE: Imaging protocol: Computed tomography of the head without contrast. Radiation optimization: All CT scans at this facility use at least one of these dose optimization techniques: automated exposure control; mA and/or kV adjustment per patient size (includes targeted exams where dose is matched to clinical indication); or iterative reconstruction. COMPARISON: No relevant prior studies available. RADIATION DOSE METRICS: Total DLP (mGy-cm): 1013.38 FINDINGS: Brain: Normal. No hemorrhage. Unremarkable white matter. No mass effect. Cerebral ventricles: No ventriculomegaly. Paranasal sinuses: Visualized sinuses are unremarkable. No fluid levels. Mastoid air cells: Visualized mastoid air cells are well aerated. Bones: Unremarkable. No acute fracture. Soft tissues: Unremarkable. CT/CT head wo con* [id number] IMPRESSION: No acute intracranial abnormality.
--- NOTE | 2024-09-11 17:16 | W.ED.HA ---
HPI - Headache General: Chief Complaint: Headache Stated Complaint: migraine Time Seen by Provider: 09/11/24 17:04 Source: patient Mode of arrival: ambulatory Limitations: no limitations History of Present Illness: This patient made her way to the emergency department this afternoon because of the headache. She states the headache began approximately yesterday. She states it initially began in the front part of her head a pounding sensation and gradually built and is now located both in the front and the back of her head. She states that as the headache has persisted and seemingly worse and she has been having nausea and episodes of emesis. She denies any trauma or falls. She denies any history of recent fever cough congestion exposure to infectious disease. She states that she thinks is a migraine although she states that she is never been to the emergency department for headaches. She is a tobacco smoker. She denies any stressors. She states that she is taken ibuprofen yesterday and Tylenol today without much relief in her headache. She is taking all her other usual medications. She denies any associated focal numbness, difficulty with walking, difficulty with vision etc. She has a history of intermittent vertigo vertigo that has been present for many years that she occasionally gets episodes and takes meclizine for that condition. MD elicited complaint: headache Onset description: gradually Location: frontal and occipital Quality & Timing: aching and throbbing Exacerbating factors: none Relieving factors: nothing Associated symptoms: Reports nausea and vomiting; Deny chest pain, fever(s) or rash Related Data Previous Rx's ?Medication ?Instructions ?Recorded albuterol sulfate 90 mcg/actuation 2 puff inhalation 6XD PRN 05/15/24 aerosol inhaler (Ventolin HFA) shortness of breath or wheezing #8.5 grams diclofenac sodium 3 % topical gel 1 applic topical BID PRN muscle 07/05/24 pain, tension #100 grams diclofenac sodium 50 mg 50 mg PO BID PRN pain #60 tabs 07/19/24 tablet,delayed release nystatin 100,000 unit/mL oral 4 ml buccal BID 10 days #80 mL 07/19/24 suspension acyclovir 400 mg tablet 400 mg PO TID #20 tabs 08/16/24 pantoprazole 40 mg tablet,delayed 40 mg PO BID 30 days #60 tabs 08/16/24 release gabapentin 300 mg capsule See Rx Instructions .Route 08/21/24 .COMPLEX #60 caps baclofen 10 mg tablet 10 mg PO TID #90 tabs 08/27/24 cholecalciferol (vitamin D3) 1,250 1,250 mcg PO .weekly #30 caps 08/27/24 mcg (50,000 unit) capsule mecobalamin (vitamin B12) 10,000 1,000 mcg IM .weekly #1 ea 08/27/24 mcg solution for injection syringe with needle, safety 3 mL #50 ea 08/27/24 25 gauge x 5/8 (Monoject Safety Syringes) meclizine 25 mg tablet 25 mg PO TID PRN dizziness #60 tabs 08/31/24 dicyclomine 20 mg tablet 20 mg PO QID PRN abdominal pain 09/06/24 #20 tabs Allergies Allergy/AdvReac Type Severity Reaction Status Date / Time bupropion (From Wellbutrin) Allergy ADR-Cramping Verified 09/11/24 16:34 of the Muscles buspirone (From BuSpar) Allergy ADR-Agitate Verified 09/11/24 16:34 d Review of Systems Const: Denies: fever(s), chills or body aches Eyes: Denies: change in vision ENMT: Denies: throat pain, odynophagia, nasal discharge or nasal congestion Card: Denies: chest pain or palpitations Resp: Denies: dyspnea, productive cough or non-productive cough GI: Reports: nausea and vomiting; Denies: abdominal pain or diarrhea : Denies: flank pain, difficulty voiding or dysuria Musc: Denies: neck pain, back pain, extremity pain or extremity swelling Skin/Breast: Denies: rash or pruritus Neuro: Reports: headache(s); Denies: numbness in extremities, weakness in extremities, vertigo, Slurred speech present or difficulty communicating thoughts Psych: Denies: anxiety or depression Endo: Denies: polyuria or polydipsia PFSH ED PFSH: Medical History GERD with esophagitis Tubular adenoma of colon Chronic pancreatitis Chronic constipation Ulcer Vertigo RLS (restless legs syndrome) Asthma Allergic rhinitis Chronic low back pain Insomnia Surgical History H/O: hysterectomy History of cholecystectomy History of appendectomy Family History Mother Hypothyroidism Other Hypertension Social History Smoking and tobacco/nicotine status: current every day tobacco/nicotine user cigarettes Packs smoked per day: 1 Alcohol intake: former Former alcohol use details: NOT HEAVY Substance/Drug Use: current Substance/Drug use frequency: daily Caregiver/support person: No Lives independently: Yes service: No Current occupational status: unemployed Current occupational exposures/hazards: No Female Reproductive History: Spontaneous abortions: No Physical Exam Narrative: EXAM NARRATIVE: She is alert and makes good eye contact and appears to be in mild distress but able to answer questions in a goal-directed fashion. 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 Resp: COMMON NORMALS: normal respiratory effort, No use of accessory muscles and clear to auscultation bilaterally AUSCULTATION: clear to auscultation bilaterally Cardio: COMMON NORMALS: no JVD, regular rhythm, No murmurs present (Cardio) and Peripheral pulses 2+ throughout RHYTHM: regular rhythm PERIPHERAL PULSES: Peripheral pulses 2+ throughout GI: COMMON NORMALS: Normal to inspection, nondistended, normoactive bowel sounds present Back/Pelvis: COMMON NORMALS: thoracic and lumbar spine normal to inspection, no thoracic nor lumbar tenderness and thoraco-lumbar ROM normal Extremity: COMMON NORMALS: normal to inspection, full ROM, capillary refill normal, no calf tenderness and no pedal edema Neuro: COMMON NORMALS: patient oriented x3, moves all extremities, no focal motor deficits, no sensory deficits noted and gait normal (She ambulated unaided within examination room was able to turn to 180 degre) SENSORIUM/ORIENTATION: Yes alert MENINGEAL SIGNS: Yes no meningeal signs CRANIAL NERVES: Yes CN normal except as noted COORDINATION/BALANCE: [id number] test normal and does not sway with eyes open SPEECH: speech normal GAIT: Yes Normal gait present COORDINATION: [id number] test normal and does not sway with eyes open Psych: COMMON NORMALS: mental status grossly normal and Normal thought process present THOUGHT PROCESS: Normal thought process present Skin: COMMON NORMALS: no rashes or lesions noted, no wounds and turgor normal GENERAL SKIN EXAM: no rashes or lesions noted and turgor normal Course Reevaluation(s): Reevaluation #1: Patient states her headache is markedly better. There is no new or focal findings on repeat evaluation. She has a nonfocal examination. Did discuss that her CT scan was reassuring although now 24 hours out after the onset of her headache it is not as reliable with respect to its negative predictive value for intracranial hemorrhage as it would be for 6 hours or less since the onset of her headache but it is close to approximation of that same value. I did relate that to the patient and stated that certainly could proceed with lumbar puncture if she was uncomfortable with the thought that she has a small percentage chance of intracranial hemorrhage that was undiagnosed. While I feel that this is significantly unlikely given her presentation I wanted to share that option with her. She voiced understanding declined any additional evaluation at this time felt comfortable with the process and was ready to be discharged home. We discussed return precautions which she acknowledged and was appreciative of care. Time: 18:16 Vital Signs: Vital signs: Vital Signs Temperature 99.0 F 09/11/24 16:29 Pulse Rate 83 09/11/24 17:30 Blood Pressure 124/53 09/11/24 17:30 Pulse Oximetry 98 09/11/24 17:30 Oxygen Delivery Me thod Room Air 09/11/24 17:30 MDM - Headache Medical Decision Making Patient is presents as noted in the HPI with a headache. Gradual in onset and frontal and now frontal and occipital in position with throbbing aching nature to her headache. No prior emergency department visits for headache, no trauma involved. Clinical presentation does not suggest a acute worrisome secondary headache however because this is her initial emergency department visit for headache we will proceed with imaging to establish no evidence of intracranial hemorrhage or other acute pathology. Will going continue with symptomatic treatment no evidence at this time of other focal neurologic deficits or other concerns. CT scan was reassuring and she responded quite well to the usual migraine cocktail of fluids, metoclopramide, diphenhydramine. Low likelihood of occult intracranial hemorrhage subarachnoid hemorrhage etc. Patient was comfortable with her treatment and diagnosis I did not wish to pursue any additional diagnostic workup at this time and I think this is reasonable. We did review and discuss return precautions. Primary headache without any evidence of worrisome secondary headache findings at this time. Lab Data Radiology Impressions Head CT 09/11/24 17:13 IMPRESSION: No acute intracranial abnormality. All radiology interpretation(s) finalized by discharge Discharge Plan Discharge Patient Disposition: Home Clinical Impression: Headache Condition: Stable Prescriptions: No Action nystatin 100,000 unit/mL suspension 4 ml buccal BID 10 Days Qty: 80 0RF Rx Instructions: Swish 30 around mouth x 30-60 seconds and spit diclofenac sodium 50 mg tablet,delayed release (DR/EC) 50 mg PO BID PRN (Reason: pain) Qty: 60 2RF albuterol sulfate [Ventolin HFA] 90 mcg/actuation HFA aerosol inhaler 2 puff inhalation 6XD PRN (Reason: shortness of breath or wheezing) Qty: 8.5 0RF diclofenac sodium 3 % gel 1 applic topical BID PRN (Reason: muscle pain, tension) Qty: 100 0RF Rx Instructions: rub in well mecobalamin (vitamin B12) 10,000 mcg recon soln 1,000 mcg IM .weekly Qty: 1 2RF baclofen 10 mg tablet 10 mg PO TID Qty: 90 3RF (DME) Monoject Safety Syringes 3 mL 25 gauge x 5/8 syringe See Rx Instructions .ROUTE .MEDSUPPLY Qty: 50 2RF Rx Instructions: Please also include drawing needles - 18G. cholecalciferol (vitamin D3) 1,250 mcg (50,000 unit) capsule 1,250 mcg PO .weekly Qty: 30 1RF Rx Instructions: Take one capsule PO every 7 days. pantoprazole 40 mg tablet,delayed release (DR/EC) 40 mg PO BID 30 Days Qty: 60 11RF acyclovir 400 mg tablet 400 mg PO TID Qty: 20 1RF Rx Instructions: Take TID x 5 days when fever blister starts. gabapentin 300 mg capsule See Rx Instructions .ROUTE .COMPLEX Qty: 60 11RF Dose Instruction: Take 1 capsule by mouth twice daily Rx Instructions: Take 1 capsule by mouth twice daily meclizine 25 mg tablet 25 mg PO TID PRN (Reason: dizziness) Qty: 60 1RF dicyclomine 20 mg tablet 20 mg PO QID PRN (Reason: abdominal pain) Qty: 20 0RF Discharge Orders: Discharge ED (Routine); Ordered 09/11/24 Ordered By: Haris Craft Referrals: Nikhil Talbot, [Primary Care Provider] - Discharge Diet: Usual diet Discharge Activity: Increase activity as tolerated Patient Instructions: Opioid Safety, Pain Management Activity Restrictions/Additional Instructions: As we discussed while you are in the emergency department your imaging of your head and brain did not reveal any evidence of a serious condition such as bleeding within your skull or brain etc. While it is not 100% accurate it has a high level of accuracy. However there is still a small chance that there could be an undiagnosed condition and therefore if your headache returns, any other symptoms of concern ensue you are welcome and encouraged to return to this or the nearest emergency department. Print Language: Swedish Coding Level of Care Code ED Well Dr[employer] Operator [employer] for Yasmin Desai
[2024-09-11 17:30] VITALS: BP 124/53; PULSE 83; O2SAT 98
[2024-09-11] MEDS: sodium chloride 0.9% 1,000 ML 999 ML IV (17:44)
[2024-09-11] MEDS: diphenhydrAMINE 50 mg/mL SDV 1mL 12.5 MG IVP (17:45)
[2024-09-11] MEDS: metoclopramide 5 mg/mL SDV 2 mL 10 MG IVP (17:45)
[2024-09-11 18:36] VITALS: BP 96/67; PULSE 85; O2SAT 97
== END 2024-09-11 18:38 | disposition home or self-care (01) ==
PROVIDERS: Emergency Provider Emergency Medicine; PCP Family Medicine
DX: R51.9 Headache, unspecified (principal); F17.210 Nicotine dependence, cigarettes, uncomplicated
CPT/HCPCS: 36415; 70450; 96361; 96374; 96375; 99285; J1200; J2765; J7030

== ENCOUNTER 2024-09-12 10:24 | Outpatient (CLI) | payer MEDICAID, SELFPAY ==
--- NOTE | 2024-09-12 11:00 | MM_ITS ---
WS: [id number] BILATERAL SCREENING DIGITAL TOMOSYNTHESIS MAMMOGRAM WITH CAD HISTORY: Z12.31 - Encounter for screening mammogram for malignant ... COMPARISON: 04/02/2008 Bilateral CC and MLO views with tomosynthesis and synthetic mammography submitted. Computer aided detection analyzed. Breast composition: The breasts are almost entirely fatty. No suspicious masses, microcalcifications or architectural distortion. Benign scattered calcifications in each breast. MM/MM scr tomosynthesis [id number] IMPRESSION: BI-RADS: 2 - Benign. FOLLOW UP: 1 Year Follow-up
== END 2024-09-12 10:25 | disposition home or self-care (01) ==
LOC: RAD 10:25
PROVIDERS: PCP Family Medicine; Visit Provider Family Medicine
DX: Z12.31 Encounter for screening mammogram for malignant neoplasm of breast (principal); R92.313 Mammographic fatty tissue density, bilateral breasts; R92.1 Mammographic calcification found on diagnostic imaging of breast
CPT/HCPCS: 77063; 77067

== ENCOUNTER → 2024-10-19 08:58 | Outpatient (BNVA) | payer MEDICAID, SELFPAY | PROVIDERS: PCP Family Medicine; Visit Provider Family Medicine | DX: E53.8 Deficiency of other specified B group vitamins (principal); E55.9 Vitamin D deficiency, unspecified | CPT/HCPCS: 82306; 82607 ==

== ENCOUNTER 2025-04-02 09:16 | Outpatient (CLI) | payer MEDICAID, SELFPAY ==
--- NOTE | 2025-04-02 09:28 | XR_ITS ---
WS: [id number] Bilateral hips, 2 views each, 04/02/2025 Clinical Data: LEFT RIGHT HIP JOINT PAIN Comparison: Right hip, 07/05/2024 Findings: The hips show no erosion, narrowing, sclerosis or fragmentation of the femoral heads. There are small acetabular lips. The pubic symphysis and adjacent pelvis are not remarkable. The SI joints are normal. 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
== END 2025-04-02 09:17 | disposition home or self-care (01) ==
PROVIDERS: PCP Family Medicine; Visit Provider Family Medicine
DX: M25.552 Pain in left hip (principal); M25.551 Pain in right hip; M16.0 Bilateral primary osteoarthritis of hip
CPT/HCPCS: 73522